=== PATIENT | female | born 1980 | race Caucasian/White ===

== ENCOUNTER 2021-06-10 21:33 | Emergency (ER) | payer OTHER ==
[~2021-06-10] VITALS: Ht 165.1 cm; Wt 93.0 kg
[2021-06-10 22:52] VITALS: BP 124/78
== END 2021-06-10 22:53 | disposition home or self-care (01) ==
LOC: ER 21:33
DX: S89.92XA Unspecified injury of left lower leg, initial encounter (principal); E11.9 Type 2 diabetes mellitus without complications; Z98.890 Other specified postprocedural states; X58.XXXA Exposure to other specified factors, initial encounter; Y93.89 Activity, other specified; Y92.89 Other specified places as the place of occurrence of the external cause; Y99.8 Other external cause status